=== PATIENT | male | born 1980 | race Caucasian/White ===

== ENCOUNTER 2016-12-27 20:04 | Emergency (ER) | payer SELFPAY ==
--- NOTE | 2016-12-27 20:24 | ED CLINICAL REPORT ---
Clinical Report - Physicians/Mid Levels [address] [address] [place] [address] 12/27/2016 20:08 Patient: GEMA BRIGGS Time Seen: 20:19; initial patient contact, initial documentation, patient care assumed. Arrived- By private vehicle. Historian- patient. HISTORY OF PRESENT ILLNESS Chief Complaint: Injury to the left middle finger. The injury happened today. Occurred at work. The patient sustained a laceration (nail gun, and nail grazed finger). Patient is not experiencing pain. Patient denies injury to the head. REVIEW OF SYSTEMS The patient sustained a laceration. No swelling, tingling, numbness, weakness or foreign body. All systems otherwise negative, except as recorded above. PAST HISTORY See nurses notes. PROBLEMS: no known problems. ADDITIONAL SURGERIES: Hernia Repair. Hydrocele repair. --20:19 Katie Paul R.N. The patient's dominant hand is the right. Tetanus immunization status is unknown. ADDITIONAL NOTES The nursing notes have been reviewed with agreement regarding the chief complaint, HPI, ROS, PMH and patient medications and allergies. PHYSICAL EXAM Appearance: Alert. Oriented X3. No acute distress. Head: Head atraumatic. Eyes: Pupils equal, round and reactive to light. Eyes normal inspection. Respiratory: No respiratory distress. Skin: Skin warm and dry. Skin intact. Extremities: Hand injury present. Left middle finger: superficial 0.5 cm laceration of the volar aspect and proximal phalanx. Neurovascular intact distally. No erythema, tenderness, swelling, abrasion or ecchymosis. No puncture wound, foreign body or deformity. No limitation in movement. No subungual hematoma or amputation present. No wrist injury. Hand and wrist exam otherwise negative. Extremities otherwise negative. Neuro, Vascular and Tendons: Vascular status intact. Sensation intact. Motor intact. Tendon function intact. Neuro: Oriented X 3. No motor deficit. No sensory deficit. Note: isolated injury to finger. PROGRESS AND PROCEDURES Patient counseled in person regarding the patient's stable condition and diagnosis. Differential Diagnosis: Other possible considerations: lac, pw, fb, tendon injury, fx. Above considerations are based on history and physical exam. Differential diagnosis was discussed with patient. Disposition: Discharged home in good and improved condition (20:24). Condition: good and stable. CLINICAL IMPRESSION Single superficial laceration to the left middle finger.Treatment of laceration not delayed. No infection, foreign body present or left fingernail injury. INSTRUCTIONS Protect wound and keep wound area clean. Allow steri-strips to remain in place until they loosen. Warnings: TETANUS: You were given a tetanus shot during your visit. Make a note for future reference. GENERAL WARNINGS: Return or contact your physician immediately if your condition worsens or changes unexpectedly, if not improving as expected, or if other problems arise. Specifically return if problem worsens. Follow-up: Follow up with your doctor in about three days as needed and for wound check. Call for an appointment. Summary of care provided to patient. Understanding of the discharge instructions verbalized by patient. (Electronically signed by Lupe Lazaro A.R.N.P. 12/27/2016 20:59)
--- NOTE | 2016-12-27 20:24 | ED CLINICAL REPORT ---
Clinical Report - Physicians/Mid Levels [address] [address] [place] [address] 12/27/2016 20:08 Patient: GEMA BRIGGS Time Seen: 20:19; initial patient contact, initial documentation, patient care assumed. Arrived- By private vehicle. Historian- patient. HISTORY OF PRESENT ILLNESS Chief Complaint: Injury to the left middle finger. The injury happened today. Occurred at work. The patient sustained a laceration (nail gun, and nail grazed finger). Patient is not experiencing pain. Patient denies injury to the head. REVIEW OF SYSTEMS The patient sustained a laceration. No swelling, tingling, numbness, weakness or foreign body. All systems otherwise negative, except as recorded above. PAST HISTORY See nurses notes. PROBLEMS: no known problems. ADDITIONAL SURGERIES: Hernia Repair. Hydrocele repair. --20:19 Katie Paul R.N. The patient's dominant hand is the right. Tetanus immunization status is unknown. ADDITIONAL NOTES The nursing notes have been reviewed with agreement regarding the chief complaint, HPI, ROS, PMH and patient medications and allergies. PHYSICAL EXAM Appearance: Alert. Oriented X3. No acute distress. Head: Head atraumatic. Eyes: Pupils equal, round and reactive to light. Eyes normal inspection. Respiratory: No respiratory distress. Skin: Skin warm and dry. Skin intact. Extremities: Hand injury present. Left middle finger: superficial 0.5 cm laceration of the volar aspect and proximal phalanx. Neurovascular intact distally. No erythema, tenderness, swelling, abrasion or ecchymosis. No puncture wound, foreign body or deformity. No limitation in movement. No subungual hematoma or amputation present. No wrist injury. Hand and wrist exam otherwise negative. Extremities otherwise negative. Neuro, Vascular and Tendons: Vascular status intact. Sensation intact. Motor intact. Tendon function intact. Neuro: Oriented X 3. No motor deficit. No sensory deficit. Note: isolated injury to finger. PROGRESS AND PROCEDURES Patient counseled in person regarding the patient's stable condition and diagnosis. Differential Diagnosis: Other possible considerations: lac, pw, fb, tendon injury, fx. Above considerations are based on history and physical exam. Differential diagnosis was discussed with patient. Disposition: Discharged home in good and improved condition (20:24). Condition: good and stable. CLINICAL IMPRESSION Single superficial laceration to the left middle finger.Treatment of laceration not delayed. No infection, foreign body present or left fingernail injury. INSTRUCTIONS Protect wound and keep wound area clean. Allow steri-strips to remain in place until they loosen. Warnings: TETANUS: You were given a tetanus shot during your visit. Make a note for future reference. GENERAL WARNINGS: Return or contact your physician immediately if your condition worsens or changes unexpectedly, if not improving as expected, or if other problems arise. Specifically return if problem worsens. Follow-up: Follow up with your doctor in about three days as needed and for wound check. Call for an appointment. Summary of care provided to patient. Understanding of the discharge instructions verbalized by patient. (Electronically signed by Lupe Lazaro A.R.N.P. 12/27/2016 20:59)
--- NOTE | 2016-12-27 20:24 | ED NURSING NOTES ---
Clinical Report - Nurses [facility] [place] [address] 12/27/2016 20:08 [id number] TRI[facility] Triage time 20:Dec 27 2016. Acuity: LEVEL 4. Chief Complaint: LEFT UPPER EXTREMITY PAIN, SWELLING and REDNESS. 20:23 12/27/16. SEPSIS SCREEN: Sepsis Screen. Negative (no infection suspected/documented). JACQUELYN COMA SCORE: [place] Coma Scale: 15- eyes open spontaneously (4); best verbal response- oriented x 4 (5); best motor response- obeys commands (6). --20:23 Katie Paul R.N. 20:17 12/27/16. BP: 146/78 (regular adult cuff) taken on the right arm, while sitting. HR: 96. RR: 16. O2 saturation: 99% on room air. Temp: 98.3 F (oral). Pain level now: 09/07. --20:23 Katie Paul R.N. Weight: 90.2 kg stated. Height/Length: 72 inches Per Patient. BMI: 27. --20:19 Katie Paul R.N. Medications None. --20:18 Katie Paul R.N. Allergies No Known Drug Allergy. --20:18 Katie Paul R.N. History Arrived by private vehicle. Historian: patient. Accompanied by family. Injury occurred. This occurred today (1230 PM). Occurred at work. He has had redness. Treatment STRIKE ON MACHINE OPERATOR: None. PAST MEDICAL HX: Tetanus status: unknown. SOCIAL HX: Current every day heavy tobacco smoker- less than 1 pack per day. No alcohol use or drug use. No infectious disease exposure. ABUSE ASSESSMENT: No report of abuse. --20:23 Katie Paul R.N. PROBLEMS: no known problems. ADDITIONAL SURGERIES: Hernia Repair. Hydrocele repair. --20:19 Katie Paul R.N. Interventions ID band on patient. To treatment room. --20:23 Katie Paul R.N. PHYSICAL ASSESSMENT 20:23 12/27/16. Ambulatory to room. GENERAL / NEURO / PSYCH: Oriented X 4. Appears in no acute distress. EXTREMITIES: Extremities exhibit normal ROM. No upper extremity edema. Skin is non-tender on the extremities. Left hand: erythema and superficial 0.5 cm laceration with controlled bleeding. SKIN: Skin intact. Skin is warm. --20:23 Katie Paul R.N. NURSING PROGRESS NOTES 20:24 12/27/16. The plan of care for this patient has been created. Extremity elevated. Reassurance given. Two patient identifiers checked. Call light placed in reach. Side rails up x 1. Bed placed in lowest position. Brakes of bed on. Patient ready for evaluation- chart flagged and PA notified. --20:24 Katie Paul R.N. 20:29 12/27/2016 TDAP IM 0.5 mL given. (Lot#: [id number], expiration date: 06/05/2018, Milk [employer]: sanofi pasteur). Given in the right deltoid. Allergies verified and confirmed 5 rights. Vaccine information statement provided to the patient. --20:29 Katie Paul R.N. Wound cleansed with sterile saline and chlorhexidine. Applied clean dressing consisting of steri-strips. --20:41 Cyn Tabares 20:42 Large bandaid placed over sterri strips. --20:46 Carlos York R.N. 20:43. The patient is calm and resting quietly. GENERAL / NEURO / PSYCH: Alert. Oriented X 4. RESPIRATORY: No respiratory distress. EXTREMITIES: Neuro-vascular status intact to the extremity. SKIN: Skin is warm and dry. --21:47 Carlos York R.N. DISPOSITION / DISCHARGE 20:45. Departure time: 20:45. Condition at departure: stable. No learning barriers present. Discharge instructions provided and reviewed with the patient. Patient verbalized understanding. Written instructions provided in Armenian. The patient was discharged home and accompanied by coil assembler. He left the Emergency Department ambulatory and via private vehicle. Patient driving. FALL RISK ASSESSMENT: Fall risk assessment completed. No fall risk identified. --20:45 Carlos York R.N. Locked/Released at 12/27/2016 21:47 by Carlos York R.N.
--- NOTE | 2016-12-27 20:24 | ED NURSING NOTES ---
Clinical Report - Nurses [facility] [place] [address] 12/27/2016 20:08 [id number] Triage time 20:Dec 27 2016. Acuity: LEVEL 4. Chief Complaint: LEFT UPPER EXTREMITY PAIN, SWELLING and REDNESS. 20:23 12/27/16. SEPSIS SCREEN: Sepsis Screen. Negative (no infection suspected/documented). JACQUELYN COMA SCORE: [place] Coma Scale: 15- eyes open spontaneously (4); best verbal response- oriented x 4 (5); best motor response- obeys commands (6). --20:23 Katie Paul R.N. 20:17 12/27/16. BP: 146/78 (regular adult cuff) taken on the right arm, while sitting. HR: 96. RR: 16. O2 saturation: 99% on room air. Temp: 98.3 F (oral). Pain level now: 09/07. --20:23 Katie Paul R.N. Weight: 90.2 kg stated. Height/Length: 72 inches Per Patient. BMI: 27. --20:19 Katie Paul R.N. Medications None. --20:18 Katie Paul R.N. Allergies No Known Drug Allergy. --20:18 Katie Paul R.N. History Arrived by private vehicle. Historian: patient. Accompanied by family. Injury occurred. This occurred today (1230 PM). Occurred at work. He has had redness. Treatment PROGRAMS DIRECTOR: None. PAST MEDICAL HX: Tetanus status: unknown. SOCIAL HX: Current every day heavy tobacco smoker- less than 1 pack per day. No alcohol use or drug use. No infectious disease exposure. ABUSE ASSESSMENT: No report of abuse. --20:23 Katie Paul R.N. PROBLEMS: no known problems. ADDITIONAL SURGERIES: Hernia Repair. Hydrocele repair. --20:19 Katie Paul R.N. Interventions ID band on patient. To treatment room. --20:23 Katie Paul R.N. PHYSICAL ASSESSMENT 20:23 12/27/16. Ambulatory to room. GENERAL / NEURO / PSYCH: Oriented X 4. Appears in no acute distress. EXTREMITIES: Extremities exhibit normal ROM. No upper extremity edema. Skin is non-tender on the extremities. Left hand: erythema and superficial 0.5 cm laceration with controlled bleeding. SKIN: Skin intact. Skin is warm. --20:23 Katie Paul R.N. NURSING PROGRESS NOTES 20:24 12/27/16. The plan of care for this patient has been created. Extremity elevated. Reassurance given. Two patient identifiers checked. Call light placed in reach. Side rails up x 1. Bed placed in lowest position. Brakes of bed on. Patient ready for evaluation- chart flagged and PA notified. --20:24 Katie Paul R.N. 20:29 12/27/2016 TDAP IM 0.5 mL given. (Lot#: [id number], expiration date: 06/05/2018, Ste[employer]: sanofi pasteur). Given in the right deltoid. Allergies verified and confirmed 5 rights. Vaccine information statement provided to the patient. --20:29 Katie Paul R.N. Wound cleansed with sterile saline and chlorhexidine. Applied clean dressing consisting of steri-strips. --20:41 Cyn Tabares 20:42 Large bandaid placed over sterri strips. --20:46 Carlos York R.N. 20:43. The patient is calm and resting quietly. GENERAL / NEURO / PSYCH: Alert. Oriented X 4. RESPIRATORY: No respiratory distress. EXTREMITIES: Neuro-vascular status intact to the extremity. SKIN: Skin is warm and dry. --21:47 Carlos York R.N. DISPOSITION / DISCHARGE 20:45. Departure time: 20:45. Condition at departure: stable. No learning barriers present. Discharge instructions provided and reviewed with the patient. Patient verbalized understanding. Written instructions provided in Kinyarwanda. The patient was discharged home and accompanied by diesel engine mechanic. He left the Emergency Department ambulatory and via private vehicle. Patient driving. FALL RISK ASSESSMENT: Fall risk assessment completed. No fall risk identified. --20:45 Carlos York R.N. Locked/Released at 12/27/2016 21:47 by Carlos York R.N.
--- NOTE | 2016-12-27 20:24 | ED ORDER SUMMARY ---
..... Patient: GEMA BRIGGS OrderSheet [facility] VisitID: [id number] [place] [address] 36y, M Registration Date/Time: 12/27/2016 ORDER SHEET Weight: 90.2 kg (stated) Allergies: No Known Drug Allergy GENERAL ORDERS: Dress Wounds (steri strip) (20:22 12/27/2016 HBivens A.R.N.P.) (20:24 JSanders R.N.) MEDICATION ORDERS: Tdap IM 0.5 mL (NOW, per protocol) (20:22 12/27/2016 HBivens A.R.N.P.) (20:29 JSanders R.N.) IV FLUIDS: ORDER SHEET NOTES: [Electronically signed by Lupe LazaroR.N.P. (20:59 12/27/2016)] [Electronically signed by Carlos York R.N. (21:47 12/27/2016)] [Electronically locked/signed by Carlos York R.N. (21:47 12/27/2016)]
--- NOTE | 2016-12-27 20:24 | ED ORDER SUMMARY ---
..... Patient: GEMA BRIGGS OrderSheet [facility] VisitID: [id number] [place] [address] 36y, M Registration Date/Time: 12/27/2016 ORDER SHEET Weight: 90.2 kg (stated) Allergies: No Known Drug Allergy GENERAL ORDERS: Dress Wounds (steri strip) (20:22 12/27/2016 HBivens A.R.N.P.) (20:24 JSanders R.N.) MEDICATION ORDERS: Tdap IM 0.5 mL (NOW, per protocol) (20:22 12/27/2016 HBivens A.R.N.P.) (20:29 JSanders R.N.) IV FLUIDS: ORDER SHEET NOTES: [Electronically signed by Lupe LazaroR.N.P. (20:59 12/27/2016)] [Electronically signed by Carlos York R.N. (21:47 12/27/2016)] [Electronically locked/signed by Carlos York R.N. (21:47 12/27/2016)]
--- NOTE | 2016-12-27 21:47 | ED DISCHARGE INSTRUCTIONS ---
Patient: GEMA BRIGGS General Instructions [facility] VisitID: [id number] [place] [address] 36y, M Registration Date/Time: 12/27/2016 Single superficial laceration to the left middle finger.Treatment of laceration not delayed. No infection, foreign body present or left fingernail injury. INSTRUCTIONS Protect wound and keep wound area clean. Allow steri-strips to remain in place until they loosen. Warnings: TETANUS: You were given a tetanus shot during your visit. Make a note for future reference. GENERAL WARNINGS: Return or contact your physician immediately if your condition worsens or changes unexpectedly, if not improving as expected, or if other problems arise. Specifically return if problem worsens. Follow-up: Follow up with your doctor in about three days as needed and for wound check. Call for an appointment. Summary of care provided to patient. Understanding of the discharge instructions verbalized by patient. ADDITIONAL INFORMATION Laceration (All Closures) Alaceration is a cut through the skin. This will usually require stitches (sutures) or segundo if it is deep. Minor cuts may be treated with a surgical tape closure orskin glue. Home care The following guidelines will help you care for your laceration at home: Extremity, face, or trunk wounds Keep the wound clean and dry. If a bandage was applied and it becomes wet or dirty, replace it. Otherwise, leave it in place for the first 24 hours. If stitches or segundo were used, clean the wound daily. After removing the bandage, wash the area with soap and water. Use a wet cotton swab to loosen and remove any blood or crust that forms. The doctor may prescribe an antibiotic cream or ointment to prevent infection. Do not stop taking this medication until you have finished the prescribed course or the doctor tells you to stop. The doctor may also prescribe medications for pain. Follow the doctors instructions for taking these medications. You may remove the bandage to shower as usual after the first 24 hours, but do not soak the area in water (no swimming) until the stitches or segundo are removed. If surgical tape was used, keep the area clean and dry. If it becomes wet, blot it dry with a towel. If skin glue was used, do not scratch, rub, or pick at the adhesive film. Do not place tape directly over the film. Do not apply liquid, ointment, or creams to the wound while the film is in place. Do not clean the wound with peroxide and do not apply ointments. Avoid activities that cause heavy sweating until the film has fallen off. Protect the wound from prolonged exposure to sunlight or tanning lamps. You may shower as usual but do not soak the wound in water (no baths or swimming). The film will fall off by itself in 510 days. Scalp wounds During the first two days, you may carefully rinse your hair in the shower to remove blood, glass or dirt particles. After two days, you may shower and shampoo your hair normally. Do not soak your scalp in the tub or go swimming until the stitches or segundo have been removed. Talk with your doctor before applying any antibiotic ointment to the wound. Mouth wounds Eat soft foods to reduce pain. If the cut is inside of your mouth, clean by rinsing after each meal and at bedtime with a mixture of equal parts water and hydrogen peroxide (do not swallow!). Or, you can use a cotton swab to directly apply hydrogen peroxide onto the cut. Mouth wounds can be painful when eating. You may use an [id number]-[id number] local numbing solution for pain relief. If this is not available, you may use any numbing solution for teething babies. You may apply this directly to the sores with a cotton-tip swab or with your finger. Follow-up care Follow up with your health care provider. Most skin wounds heal within ten days. Mouth and facial wounds heal within five days. However, even with proper treatment, a wound infection may sometimes occur. Therefore, you should check the wound daily for signs of infection listed below. Stitches should be removed from the face within five days; stitches and segundo should be removed from other parts of the body within 714 days. If dissolving stitches were used in the mouth, these will fall out or dissolve without the need for removal. If tape closures were used, remove them yourself if they have not fallen off after 7 days. Ifskin glue was used, the film will fall off by itself in 510 days. When to seek medical care Get prompt medical attention if any of these occur: Bleeding not controlled by direct pressure Signs of infection, including increasing pain in the wound, increasing wound redness or swelling, or pus coming from the wound Fever of 100.4F (38C) or higher, or as directed by your health care provider Stitches or segundo come apart or fall out or surgical tape falls off before 7 days Wound edges re-open Diphtheria Toxoid Adsorbed, Pertussis Vaccine, Acellular (Adsorbed), Tetanus Toxoid, Adsorbed Suspension for injection What is this medicine? DIPHTHERIA and TETANUS TOXOIDS; PERTUSSIS VACCINE (dif THEER ee uh and TET n us TOK soids; per TUS iss vak SEEN) is used to prevent diphtheria, tetanus, and pertussis infections. How should I use this medicine? This vaccine is for injection into a muscle. It is given by a health transitions rn care coordinator. A copy of Vaccine Information Statements will be given before each vaccination. Read this sheet carefully each time. The sheet may change frequently. Talk to your revenue specialist regarding the use of this vaccine in children. While the DTP vaccine may be given to children ages 6 weeks to 7 years and the Tdap vaccine may be given to children at least 10 years old, precautions do apply. What side effects may I notice from receiving this medicine? Side effects that you should report to your doctor or health transitions rn care coordinator as soon as possible: allergic reactions like skin rash, itching or hives, swelling of the face, lips, or tongue breathing problems fever of 103 degrees F or more flu-like symptoms inconsolable crying infection pain, tingling, numbness in the hands or feet seizures swelling of arm or leg that was injected unusually weak or tired Side effects that usually do not require immediate medical attention (report these side effects to your doctor or health transitions rn care coordinator if they continue or are bothersome): fussy, irritable loss of appetite fever of 102 degrees F or less pain, tenderness, redness, swelling, or a 'knot' at site where injected vomiting What may interact with this medicine? immune globulin medicines that suppress your immune function like adalimumab, anakinra, infliximab medicines to treat cancer medicines that treat or prevent blood clots like warfarin, enoxaparin, and dalteparin steroid medicines like prednisone or cortisone What if I miss a dose? It is important not to miss your dose. Call your doctor or health transitions rn care coordinator if you are unable to keep an appointment. Where should I keep my medicine? This drug is given in a hospital or clinic and will not be stored at home. What should I tell my health care provider before I take this medicine? They need to know if you have any of these conditions: blood disorders like hemophilia fever or infection immune system problems neurologic disease seizures an unusual or allergic reaction to vaccines, thimerosal, latex, other medicines, foods, dyes, or preservatives or trying to get breast-feeding What should I watch for while using this medicine? See your health care provider for all shots of this vaccine as directed. To have protection from infection, you must have 3 shots of this vaccine plus boosters as needed. Tell your doctor right away if you have any serious or unusual side effects after getting this vaccine. You have been given the following additional information: Laceration, All Diphtheria Toxoid Adsorbed, Pertussis Vaccine, Acellular (Adsorbed), Tetanus Toxoid, Adsorbed Suspension for injection (Electronically signed by Lupe aLzaro A.R.N.P. 12/27/2016 20:59)
--- NOTE | 2016-12-27 21:47 | ED DISCHARGE INSTRUCTIONS ---
Patient: GEMA BRIGGS General Instructions [facility] VisitID: [id number] [place] [address] 36y, M Registration Date/Time: 12/27/2016 Single superficial laceration to the left middle finger.Treatment of laceration not delayed. No infection, foreign body present or left fingernail injury. INSTRUCTIONS Protect wound and keep wound area clean. Allow steri-strips to remain in place until they loosen. Warnings: TETANUS: You were given a tetanus shot during your visit. Make a note for future reference. GENERAL WARNINGS: Return or contact your physician immediately if your condition worsens or changes unexpectedly, if not improving as expected, or if other problems arise. Specifically return if problem worsens. Follow-up: Follow up with your doctor in about three days as needed and for wound check. Call for an appointment. Summary of care provided to patient. Understanding of the discharge instructions verbalized by patient. ADDITIONAL INFORMATION Laceration (All Closures) Alaceration is a cut through the skin. This will usually require stitches (sutures) or segundo if it is deep. Minor cuts may be treated with a surgical tape closure orskin glue. Home care The following guidelines will help you care for your laceration at home: Extremity, face, or trunk wounds Keep the wound clean and dry. If a bandage was applied and it becomes wet or dirty, replace it. Otherwise, leave it in place for the first 24 hours. If stitches or segundo were used, clean the wound daily. After removing the bandage, wash the area with soap and water. Use a wet cotton swab to loosen and remove any blood or crust that forms. The doctor may prescribe an antibiotic cream or ointment to prevent infection. Do not stop taking this medication until you have finished the prescribed course or the doctor tells you to stop. The doctor may also prescribe medications for pain. Follow the doctors instructions for taking these medications. You may remove the bandage to shower as usual after the first 24 hours, but do not soak the area in water (no swimming) until the stitches or segundo are removed. If surgical tape was used, keep the area clean and dry. If it becomes wet, blot it dry with a towel. If skin glue was used, do not scratch, rub, or pick at the adhesive film. Do not place tape directly over the film. Do not apply liquid, ointment, or creams to the wound while the film is in place. Do not clean the wound with peroxide and do not apply ointments. Avoid activities that cause heavy sweating until the film has fallen off. Protect the wound from prolonged exposure to sunlight or tanning lamps. You may shower as usual but do not soak the wound in water (no baths or swimming). The film will fall off by itself in 510 days. Scalp wounds During the first two days, you may carefully rinse your hair in the shower to remove blood, glass or dirt particles. After two days, you may shower and shampoo your hair normally. Do not soak your scalp in the tub or go swimming until the stitches or segundo have been removed. Talk with your doctor before applying any antibiotic ointment to the wound. Mouth wounds Eat soft foods to reduce pain. If the cut is inside of your mouth, clean by rinsing after each meal and at bedtime with a mixture of equal parts water and hydrogen peroxide (do not swallow!). Or, you can use a cotton swab to directly apply hydrogen peroxide onto the cut. Mouth wounds can be painful when eating. You may use an ilit-[id number] local numbing solution for pain relief. If this is not available, you may use any numbing solution for teething babies. You may apply this directly to the sores with a cotton-tip swab or with your finger. Follow-up care Follow up with your health care provider. Most skin wounds heal within ten days. Mouth and facial wounds heal within five days. However, even with proper treatment, a wound infection may sometimes occur. Therefore, you should check the wound daily for signs of infection listed below. Stitches should be removed from the face within five days; stitches and segundo should be removed from other parts of the body within 714 days. If dissolving stitches were used in the mouth, these will fall out or dissolve without the need for removal. If tape closures were used, remove them yourself if they have not fallen off after 7 days. Ifskin glue was used, the film will fall off by itself in 510 days. When to seek medical care Get prompt medical attention if any of these occur: Bleeding not controlled by direct pressure Signs of infection, including increasing pain in the wound, increasing wound redness or swelling, or pus coming from the wound Fever of 100.4F (38C) or higher, or as directed by your health care provider Stitches or segundo come apart or fall out or surgical tape falls off before 7 days Wound edges re-open Diphtheria Toxoid Adsorbed, Pertussis Vaccine, Acellular (Adsorbed), Tetanus Toxoid, Adsorbed Suspension for injection What is this medicine? DIPHTHERIA and TETANUS TOXOIDS; PERTUSSIS VACCINE (dif THEER ee uh and TET n us TOK soids; per TUS iss vak SEEN) is used to prevent diphtheria, tetanus, and pertussis infections. How should I use this medicine? This vaccine is for injection into a muscle. It is given by a health health care technician. A copy of Vaccine Information Statements will be given before each vaccination. Read this sheet carefully each time. The sheet may change frequently. Talk to your accounting intern regarding the use of this vaccine in children. While the DTP vaccine may be given to children ages 6 weeks to 7 years and the Tdap vaccine may be given to children at least 10 years old, precautions do apply. What side effects may I notice from receiving this medicine? Side effects that you should report to your doctor or health health care technician as soon as possible: allergic reactions like skin rash, itching or hives, swelling of the face, lips, or tongue breathing problems fever of 103 degrees F or more flu-like symptoms inconsolable crying infection pain, tingling, numbness in the hands or feet seizures swelling of arm or leg that was injected unusually weak or tired Side effects that usually do not require immediate medical attention (report these side effects to your doctor or health health care technician if they continue or are bothersome): fussy, irritable loss of appetite fever of 102 degrees F or less pain, tenderness, redness, swelling, or a 'knot' at site where injected vomiting What may interact with this medicine? immune globulin medicines that suppress your immune function like adalimumab, anakinra, infliximab medicines to treat cancer medicines that treat or prevent blood clots like warfarin, enoxaparin, and dalteparin steroid medicines like prednisone or cortisone What if I miss a dose? It is important not to miss your dose. Call your doctor or health health care technician if you are unable to keep an appointment. Where should I keep my medicine? This drug is given in a hospital or clinic and will not be stored at home. What should I tell my health care provider before I take this medicine? They need to know if you have any of these conditions: blood disorders like hemophilia fever or infection immune system problems neurologic disease seizures an unusual or allergic reaction to vaccines, thimerosal, latex, other medicines, foods, dyes, or preservatives or trying to get breast-feeding What should I watch for while using this medicine? See your health care provider for all shots of this vaccine as directed. To have protection from infection, you must have 3 shots of this vaccine plus boosters as needed. Tell your doctor right away if you have any serious or unusual side effects after getting this vaccine. You have been given the following additional information: Laceration, All Diphtheria Toxoid Adsorbed, Pertussis Vaccine, Acellular (Adsorbed), Tetanus Toxoid, Adsorbed Suspension for injection (Electronically signed by Lupe Lazaro A.R.N.P. 12/27/2016 20:59)
--- NOTE | 2016-12-27 21:48 | ED MAR SUMMARY ---
..... Medication Administration Record [facility] [address] [place] [address] Patient: GEMA BRIGGS Visit ID: [id number] 36y, M Weight: 90.2 kg Height/Length: 72 in BMI: 27 ALLERGIES: No Known Drug Allergy Given 20:29 12/27/2016 Katie Paul R.N. Medication Administered: TDAP [IM], Dose: 0.5 mL IM. Medication Ordered: Tdap IM 0.5 mL (NOW, per protocol).
--- NOTE | 2016-12-27 21:48 | ED MAR SUMMARY ---
..... Medication Administration Record [facility] [address] [place] [address] Patient: GEMA BRIGGS Visit ID: [id number] 36y, M Weight: 90.2 kg Height/Length: 72 in BMI: 27 ALLERGIES: No Known Drug Allergy Given 20:29 12/27/2016 Katie Paul R.N. Medication Administered: TDAP [IM], Dose: 0.5 mL IM. Medication Ordered: Tdap IM 0.5 mL (NOW, per protocol).
--- NOTE | 2016-12-27 21:48 | ED MED RECONCILIATION SUMMARY ---
Patient: MALISSA BRIGGSPerry Perry Medication Reconciliation Report [facility] VisitID: [id number] [address] [place] [address] 36y, M Registration Date/Time: 12/27/2016 Weight: 90.2 kg Height/Length: 72 in. BMI: 27.0 ALLERGIES: No Known Drug Allergy The patient's Home Medications are listed below: NONE. The source(s) of the original Home Medication information: Not obtained. The following Medications were given to the patient in the Emergency Department: TDAP [IM] IM 0.5 mL, administered: 12/27/2016 8:29:00 PM The following Medications were prescribed to the patient: None.
--- NOTE | 2016-12-27 21:48 | ED MED RECONCILIATION SUMMARY ---
Patient: MALISSA BRIGGSPerry Perry Medication Reconciliation Report [facility] VisitID: [id number] [address] [place] [address] 36y, M Registration Date/Time: 12/27/2016 Weight: 90.2 kg Height/Length: 72 in. BMI: 27.0 ALLERGIES: No Known Drug Allergy The patient's Home Medications are listed below: NONE. The source(s) of the original Home Medication information: Not obtained. The following Medications were given to the patient in the Emergency Department: TDAP [IM] IM 0.5 mL, administered: 12/27/2016 8:29:00 PM The following Medications were prescribed to the patient: None.
== END 2016-12-27 20:45 | disposition home or self-care (01) ==
LOC: ED SRH 20:04
DX: S61.213A Laceration without foreign body of left middle finger without damage to nail, initial encounter (principal); W29.4XXA Contact with nail gun, initial encounter; Y93.9 Activity, unspecified; Y92.9 Unspecified place or not applicable; Y99.0 Civilian activity done for income or pay; F17.210 Nicotine dependence, cigarettes, uncomplicated